=== PATIENT | female | born 1995 | race Caucasian/White ===

== ENCOUNTER 2022-08-08 16:07 | Outpatient (CLI) | payer OTHER, SELFPAY ==
[2022-08-08 14:47] VITALS: BP 129/80; PULSE 105; RESP 17; TEMP 36.6; O2SAT 99; BMI 33.6
--- NOTE | 2022-08-08 16:06 | W.ED.CHARTNO ---
ED Chart Note Chart Note Details Date: 08/08/22 Details: Patient registered to the emergency department. She is a 2 at approximately 31 weeks comes in with GI illness initially but then reports that she has been having some contractions which she did not initially report triage nurse. Patient to [facility] or further evaluation treatment per
[2022-08-08 16:17] VITALS: PULSE 105; O2SAT 100
[2022-08-08 16:20] VITALS: BP 120/81; PULSE 106; TEMP 36.8
--- NOTE | 2022-08-08 16:21 | ED.NURSE ---
pt was transferred to OB due to feelings of contractions
[2022-08-08] MEDS: LACTATED RINGERS 1000 ML 1,000 ML IV (16:54)
[2022-08-08] MEDS: ONDANSETRON 2 MG/ML inj 4 MG IVP (16:54)
[2022-08-08 17:57] LABS: SARS PCR* POSITIVE SARS-CoV-2 (Negative)
[2022-08-08] MEDS: LACTATED RINGERS 1000 ML IV (18:06)
--- NOTE | 2022-08-08 19:49 | P.OBLDTN_ITS ---
OB - Triage/Final Diagnosis Visit Information Time Seen by Provider: 19:49 Date Seen: 08/08/22 Date of evaluation: 08/08/22 Narrative: Betsey is a 27-year-old 3 para 2001 approximately 31 weeks gestation by last menstrual period consistent with a 1st trimester ultrasound. She was diverted from [address] by her OBGYN in [place] with complaints of nausea, vomiting and diarrhea starting Friday night on 08/04/2022. She has been only able to keep a few bites of food down and very little fluid. She has 2 boys at home who are age 3 and 2 years old and has not been able to care for them because she has been so dehydrated, fatigue and feeling unwell. She denies having a fever, cough, shortness of breath, chest pain, muscle aches loss of sense of smell or taste. She has not had any ill contacts. She works from [employer]. She states that she has had some ?Jose Rafael Negron? contractions this week due to diarrhea and dehydration. She states this does not feel like labor. She has not had any complications in this . She is otherwise healthy. She takes medication for significant GERD and what sounds like hiatal hernia and a baby aspirin daily due to history of gestational hypertension with both of her previous children induction of labor at 37 weeks. Because she reported some contractions the emergency department recommended that she be seen in the Center triage area for evaluation. Past medical history: 1. GERD with hiatal hernia 2. Obesity 3. History of gestational hypertension x2 Surgical history: None reported Obstetric history: 2 vaginal deliveries at 37 weeks gestation, both complicated by gestational hypertension with induction of labor. Boys. Currently expecting a 3rd boy. Social history: [id number] mom Denies: Smoking cigarettes, E cigarettes, illicit/recreational drugs, alcohol. Family history: Noncontributory OBJECTIVE: GENERAL APPEARANCE: Pleasant, , well-groomed woman in no acute distress. VITAL SIGNS: as noted in nursing notes LUNGS: Clear to auscultation bilaterally without wheezes, rales or rhonchi. HEART: Regular rate and rhythm with normal S1 and S2. No gallop, rub or murmur. ABDOMEN: Gravid. Soft, nontender, nondistended, with normal bowels sounds throughout. HEART TONES: 140s, reactive NST, category 1. Few irregular, contractions lasting less than 30 seconds increased frequency after IV hydration. PRESENTATION: Vertex by Prakash's maneuvers. SVE: Cervix exam not checked EXTREMITIES: No cyanosis, clubbing, or edema. No varicosities. NEUROLOGIC: Normal gait and balance. Normal deep tendon reflexes at bilateral patella 2+/2, equal without clonus. PSYCHIATRIC: alert and oriented x3. Normal speech pattern, eye contact and affect. SKIN: Warm, dry, and well perfused. Good turgor. No lesions, nodules or rashes. Assessment: Nausea, vomiting and diarrhea x4 days with dehydration. Unclear etiology at assessment. Plan: 1. COVID test 2. IV fluid hydration 2 L lactated Ringer's 3. Zofran 4 mg IV x1 Results: COVID positive Patient stated improvement in symptoms after IV fluid hydration but did not feel 100%. Due to I recommended Paxlovid for treatment of COVID. Her gastrointestinal symptoms are likely secondary to COVID. This medication decreases the chances severe disease by 90% if started in the 1st 5 days after symptoms begin. Is safe to use in . Is an antiviral. Serum creatinine ordered as Paxlovid can be because dosage adjusted in people with moderate renal impairment. Sent the below medications to [facility] in [place]: The dosage for Paxlovid is 300 mg nirmatralvir ( two 150mg tablets) with 100mg ritonavir (one 100mg tablet): Take all 3 tablets BID for 5 days. Ondasetron ODT 4mg PO QID prn N/V: #30 w/ 3 refills. Evaluation Laboratory results: Laboratory Tests 08/08/22 Range/Units 17:06 SARS-CoV-2 (PCR) POSITIVE SARS-CoV-2 A (Negative) Vital signs: Vital Signs - 24 hr 08/08/22 14:47 08/08/22 16:17 08/08/22 16:20 Temperature 97.9 F Pulse Rate 106 H Pulse Rate [Pulse Oximeter] 105 H Respiratory Rate 17 Blood Pressure 120/81 Blood Pressure [Right Upper Arm] 129/80 Pulse Oximetry 99 100 Oxygen Delivery Method Room Air 08/08/22 16:20 Temperature 98.3 F Pulse Rate Pulse Rate [Pulse Oximeter] Respiratory Rate Blood Pressure Blood Pressure [Right Upper Arm] Pulse Oximetry Oxygen Delivery Method Fetus (Single) Heart Rate Baseline: 140 Information Security Variability: Moderate (6-25) Monitor Accelerations: Present Monitor Decelerations: None Station: -3
--- NOTE | 2022-08-08 19:55 | PC.OBNST ---
NST Note NST Note Start: 08/08/22 16:20 Freq: ONCE Status: Active Protocol: Document 08/08/22 19:51 HALLIEDANIELABETHANY (Rec: 08/08/22 19:55 KYREEBETHANY [id number]) NST Note 3 Para (# of births) 2 EDC 10/12/22 Gestational Age In Weeks & Days 30 Weeks & 5 Days Patient Presented with Complaint(s) of Nausea and vomiting Other Complaints Pt found to be COVID + on admit to triage. Reactive Yes Appropriate for Gestational Age Yes RN Javid Covington RN Date 08/08/22 Reactive Yes Appropriate for Gestational Age Yes KEATON Sainz RN Date 08/08/22 OB NST charge Yes Complete NST Note via Write Note Yes The provider's electronic signature indicates the NST is reactive/appropriate for gestational age. *Note to provider: If an addendum is required, open the patient's chart and click on the note under the Nurse/Allied Health tab.
[2022-08-08 20:20] LABS: Creatinine* 0.5 mg/dL (0.5-1.5); Est. Creatinine Clearance* 170.49; Estimated Glomerular Filt Rate 132 ml/min
== END 2022-08-08 20:35 | disposition home or self-care (01) ==
LOC: OB OUT 16:11 → OB 16:12
PROVIDERS: Visit Provider Obstetrics & Gynecology
DX: O98.513 Other viral diseases complicating pregnancy, third trimester (principal); U07.1 COVID-19; R11.2 Nausea with vomiting, unspecified; Z3A.30 30 weeks gestation of pregnancy
CPT/HCPCS: 36415; 59025; 82565; 87635; 99213; J2405; J7120

== ENCOUNTER 2024-05-03 12:51 | Outpatient (CLI) | payer OTHER, SELFPAY ==
--- NOTE | 2024-05-03 13:00 | CRLHL7_ITS ---
For Patients: As a result of the Cures Act, medical imaging exams and procedure reports are released immediately into your electronic medical record. You may view this report before your referring provider. If you have questions, please contact your health care provider. INDICATION: First trimester scan, establish dates. COMPARISON: None. TECHNIQUE: Real-time moreno-scale imaging of the pelvis was performed. FINDINGS: Sonographic imaging demonstrates a single living intrauterine gestation. The embryo demonstrates a regular cardiac rate measuring 171 beats per minute. The embryo`s crown-rump length measurement of 2.1 cm corresponds to a gestational age of 8 weeks 5 days with a sonographic due date of 12/08/2024. There is a normal-appearing yolk sac. There are no gross abnormalities noted within the embryo at this early state of development. The gestational sac has a normal appearance. There is no evidence of a perigestational hemorrhage. The amount of fluid within the sac appears appropriate for gestational age. The cervix is closed. The myometrium appears normal. Normal right ovary. Left ovary not visualized. There are no suspicious fluid collections noted in the cul-de-sac. IMPRESSION: Single living intrauterine with sonographic gestational age 8 weeks 5 days and sonographic due date 12/08/2024. Dictated by Dav Ruiz MD @ 05/04/2024 11:37:11 AM (Electronically Signed)
== END 2024-05-03 12:52 | disposition home or self-care (01) ==
LOC: US 12:52
PROVIDERS: Visit Provider Advanced Practice Midwife
DX: Z34.91 Encounter for supervision of normal pregnancy, unspecified, first trimester (principal); Z3A.08 8 weeks gestation of pregnancy
CPT/HCPCS: 76817; 82565; 82570; 84156; 84450; 84460; 84520; 86592; 86703; 86704; 86706; 86762; 86787; 86803; 86850; 87086; 87340

== ENCOUNTER 2024-05-03 14:00 | Outpatient (CLI) | payer OTHER, SELFPAY | END 2024-05-03 14:01 | disposition home or self-care (01) | PROVIDERS: Visit Provider Advanced Practice Midwife | DX: Z34.81 Encounter for supervision of other normal pregnancy, first trimester (principal) | CPT/HCPCS: 82565; 82570; 84156; 84450; 84460; 84520; 86592; 86703; 86704; 86706; 86762; 86787; 86803; 86850; 87086; 87340 ==

== ENCOUNTER 2024-05-31 13:33 | Outpatient (CLI) | payer OTHER, SELFPAY | END 2024-05-31 13:34 | disposition home or self-care (01) | LOC: NFLDREF 13:34 | PROVIDERS: Visit Provider Advanced Practice Midwife | DX: Z34.91 Encounter for supervision of normal pregnancy, unspecified, first trimester (principal); Z3A.13 13 weeks gestation of pregnancy | CPT/HCPCS: 84460 ==

== ENCOUNTER 2024-07-26 10:13 | Outpatient (CLI) | payer OTHER, SELFPAY ==
--- NOTE | 2024-07-26 10:15 | CRLHL7_ITS ---
For Patients: As a result of the Century Cures Act, medical imaging exams and procedure reports are released immediately into your electronic medical record. You may view this report before your referring provider. If you have questions, please contact your health care provider. INDICATION: Evaluate anatomy. COMPARISON: 05/03/2024 TECHNIQUE: Real time moreno scale imaging of the fetus was performed as well as color Doppler analysis of the umbilical vessels. FINDINGS: Sonographic imaging demonstrates a single living intrauterine gestation. Fetus demonstrates a regular cardiac rate of 134 beats per minute. Fetus has a vertex position. The placenta lies posteriorly without evidence of placenta previa. Placental edge is 3.7 cm from the internal cervical os. Amniotic fluid volume appears normal. Single deepest vertical pocket: 3.9 cm. The cervix is closed and measures 3.2 cm in length. The composite ultrasound gestational age is calculated at 21 weeks 1 day with an estimated sonographic due date of 12/05/2024. The estimated weight is 422 grams which lies at the 68th %. The following biometric measurements were obtained: Biparietal diameter: 4.8 cm/20 weeks 3 days 28th% Head circumference: 18.4 cm/20 weeks 5 days 31st% Abdominal circumference: 16.5 cm/21 weeks 4 days 63rd% Femur length: 3.6 cm/21 weeks 3 days 58th% The HC/AC ratio measures: 1.11 range (1.06-1.25) On anatomic survey, there is a normal appearance of the cerebral ventricles, cavum septi pellucidi, cisterna magna and cerebellum. Normal nose and lips. Incomplete visualization of the profile and nuchal fold. The cervical, thoracic and lumbar spine are not well visualized. Normal four-chamber heart and RVOT. Incomplete visualization of the LVOT. The diaphragm and stomach appear normal. Incomplete visualization of the kidneys. Normal bladder. There is a normal three-vessel cord and cord insertion site. The four extremities appear normal. IMPRESSION: Concordance of clinical and sonographic dating. Incomplete visualization of the profile, kidneys, LVOT, nuchal fold and spine due to position. Remainder of the anatomic survey normal given limitations due to body habitus. Short-term follow-up recommended. Dictated by Dav Ruiz MD @ 07/26/2024 12:02:43 PM (Electronically Signed)
== END 2024-07-26 10:14 | disposition home or self-care (01) ==
LOC: US 10:15
PROVIDERS: Visit Provider Advanced Practice Midwife
DX: Z34.92 Encounter for supervision of normal pregnancy, unspecified, second trimester (principal); Z3A.21 21 weeks gestation of pregnancy
CPT/HCPCS: 76805

== ENCOUNTER 2024-08-09 13:55 | Outpatient (CLI) | payer OTHER, SELFPAY ==
--- NOTE | 2024-08-09 14:00 | CRLHL7_ITS ---
For Patients: As a result of the Century Cures Act, medical imaging exams and procedure reports are released immediately into your electronic medical record. You may view this report before your referring provider. If you have questions, please contact your health care provider. OB ULTRASOUND FOLLOWUP LIMITED, 08/09/2024 CLINICAL HISTORY: Followup suboptimal anatomy views; spine, kidneys, LVOT, nuchal fold, profile. COMPARISON: 07/26/2024. TECHNIQUE: Transabdominal. FINDINGS: RUTHY by LMP: 12/06/2024. GA: 23 weeks 0 days. Cervix: Visualized. positioning: Breech. Amniotic fluid: 5.7 cm. Placenta: Technique: Transabdominal. Placenta position: Posterior. Dopplers: heart rate: 139 bpm. IMPRESSION: Facial profile, kidneys, LVOT, nuchal fold and spine were seen and appear normal. Adrian Quigley M.D. Body/Diagnostic Radiologist [email or web address] Transcribed: 12:49 pm DW/Dictated by: Adrian Quigley MD @ 08/10/2024 11:58:00 AM (Electronically Signed)
== END 2024-08-09 13:56 | disposition home or self-care (01) ==
LOC: US 13:55
PROVIDERS: Visit Provider Midwife
DX: Z34.92 Encounter for supervision of normal pregnancy, unspecified, second trimester (principal); Z3A.23 23 weeks gestation of pregnancy
CPT/HCPCS: 76816

== ENCOUNTER 2024-09-20 10:35 | Outpatient (CLI) | payer OTHER, SELFPAY | END 2024-09-20 10:36 | disposition home or self-care (01) | LOC: NFLDREF 09-22 06:21 | PROVIDERS: Visit Provider Advanced Practice Midwife | DX: Z34.93 Encounter for supervision of normal pregnancy, unspecified, third trimester (principal); Z3A.29 29 weeks gestation of pregnancy; R74.01 Elevation of levels of liver transaminase levels | CPT/HCPCS: 84460; 86592 ==

== ENCOUNTER 2024-09-28 13:24 | Outpatient (CLI) | payer OTHER, SELFPAY | END 2024-09-28 13:25 | disposition home or self-care (01) | PROVIDERS: Visit Provider Midwife | DX: Z34.93 Encounter for supervision of normal pregnancy, unspecified, third trimester (principal); Z3A.30 30 weeks gestation of pregnancy | CPT/HCPCS: 82565; 82570; 84156; 84450; 84460; 84520; 84550; 85027 ==

== ENCOUNTER 2024-10-25 11:32 | Outpatient (CLI) | payer OTHER, SELFPAY | END 2024-10-25 11:33 | disposition home or self-care (01) | LOC: NFLDREF 23:54 | PROVIDERS: Visit Provider Physician Assistant | DX: Z34.83 Encounter for supervision of other normal pregnancy, third trimester (principal) | CPT/HCPCS: 82728 ==

== ENCOUNTER 2024-10-28 15:10 | Outpatient (CLI) | payer OTHER, SELFPAY ==
[2024-10-28] VITALS (82 sets, daily range): BP systolic 114–144; BP diastolic 59–86; PULSE 106–136; RESP 16; TEMP 36.5; O2SAT 96–99
[2024-10-28] MEDS: ACETAMINOPHEN 500 MG TABLET 1000 MG PO (16:48)
[2024-10-28 17:07] LABS: Alanine Aminotransferase* 33 U/L (4-35); Aspartate Amino Transferase* 32 U/L (12-35); Blood Urea Nitrogen* 7 mg/dL (5-24); Creatinine* 0.5 mg/dL (0.5-1.5); Estimated Glomerular Filt Rate 130 ml/min
[2024-10-28 17:13] LABS: Hematocrit 34.5 % (33.0-51.0); Hemoglobin* 11.2 gm/dL (12.0-16.0); Mean Corpuscular HGB Conc 33 gm/dL (32-36); Mean Corpuscular Hemoglobin 26 pg (26-34); Mean Corpuscular Volume 80 fL (80-100); Platelet Count* 199 K/uL (140-440); Red Blood Count 4.31 m/uL (4.00-5.20); White Blood Count* 10.75 K/uL (4.50-11.00)
[2024-10-28 17:37] LABS: Slide Review Reflex No
[2024-10-28] MEDS: METOCLOPRAMIDE 10 MG TABLET PO (20:48)
--- NOTE | 2024-10-28 21:09 | P.OBLDTN_ITS ---
OB - Triage/Final Diagnosis Visit Information Date Seen: 10/28/24 Date of evaluation: 10/28/24 Narrative: Betsey is a 29 year old 4 para 3 at 34.3 weeks gestation by LMP, who presents with elevated blood pressures with a history of gestational hypertensio n in previous pregnancies. She had been monitoring blood pressures at home and has had some elevations over the last day which were >140/90. She was seen in the clinic for a blood pressure check and had an elevated blood pressure of 148/88. She elected to come to L&D for additional blood pressure monitoring and has now met criteria for gestational hypertension this . Reviewed recommendations for testing twice weekly and weekly lab work with planned induction of labor at 37 weeks. She has a BP cuff at home and will continue to monitor twice daily. Knows to report increasing BP's, headaches, upper abdominal pain or visual changes. She was comfortable with this plan and verbalized understanding of what to report. Patient was discharged home. Reason for evaluation: other Evaluation Laboratory results: Laboratory Tests 10/28/24 10/28/24 Range/Units 16:38 15:20 WBC 10.75 (4.50-11.00) K/uL RBC 4.31 (4.00-5.20) m/uL Hgb 11.2 L (12.0-16.0) gm/dL Hct 34.5 (33.0-51.0) % MCV 80 (80-100) fL MCH 26 (26-34) pg MCHC 33 (32-36) gm/dL Plt Count 199 (140-440) K/uL BUN 7 (5-24) mg/dL Creatinine 0.5 (0.5-1.5) mg/dL Estimated GFR 130 ml/min AST 32 (12-35) U/L ALT 33 (4-35) U/L Urine Creatinine Pending Protein/Creatinin Ratio Pending Urine Total Protein Pending Vital signs: Vital Signs - 24 hr 10/28/24 15:26 10/28/24 15:26 10/28/24 15:31 Temperature 97.7 F Pulse Rate 134 H Respiratory Rate 16 Blood Pressure 128/79 Pulse Oximetry 98 98 10/28/24 15:36 10/28/24 15:40 10/28/24 15:41 Temperature Pulse Rate 127 H Respiratory Rate Blood Pressure 132/81 Pulse Oximetry 98 98 10/28/24 15:46 10/28/24 15:51 10/28/24 15:55 Temperature Pulse Rate 122 H Respiratory Rate Blood Pressure 131/76 Pulse Oximetry 99 98 10/28/24 15:56 10/28/24 16:01 10/28/24 16:06 Temperature Pulse Rate Respiratory Rate Blood Pressure Pulse Oximetry 98 97 97 10/28/24 16:10 10/28/24 16:11 10/28/24 16:16 Temperature Pulse Rate 130 H Respiratory Rate Blood Pressure 129/73 Pulse Oximetry 98 98 10/28/24 16:21 10/28/24 16:25 10/28/24 16:26 Temperature Pulse Rate 127 H Respiratory Rate Blood Pressure 140/79 H Pulse Oximetry 98 99 10/28/24 16:31 10/28/24 16:36 10/28/24 16:41 Temperature Pulse Rate Respiratory Rate Blood Pressure Pulse Oximetry 98 99 99 10/28/24 16:42 10/28/24 16:46 10/28/24 16:51 Temperature Pulse Rate 110 H Respiratory Rate Blood Pressure 115/67 Pulse Oximetry 98 98 10/28/24 16:55 10/28/24 16:56 10/28/24 17:02 Temperature Pulse Rate 117 H Respiratory Rate Blood Pressure 114/63 Pulse Oximetry 98 96 10/28/24 17:07 10/28/24 17:11 10/28/24 17:12 Temperature Pulse Rate 127 H Respiratory Rate Blood Pressure 130/80 Pulse Oximetry 98 98 10/28/24 17:17 10/28/24 17:22 10/28/24 17:25 Temperature Pulse Rate 125 H Respiratory Rate Blood Pressure 125/69 Pulse Oximetry 97 97 10/28/24 17:27 10/28/24 17:32 10/28/24 17:37 Temperature Pulse Rate Respiratory Rate Blood Pressure Pulse Oximetry 96 96 97 10/28/24 17:40 10/28/24 17:42 10/28/24 17:47 Temperature Pulse Rate 122 H Respiratory Rate Blood Pressure 116/73 Pulse Oximetry 98 97 10/28/24 17:52 10/28/24 17:55 10/28/24 17:57 Temperature Pulse Rate 125 H Respiratory Rate Blood Pressure 130/80 Pulse Oximetry 98 97 10/28/24 18:02 10/28/24 18:07 10/28/24 18:10 Temperature Pulse Rate 125 H Respiratory Rate Blood Pressure 132/83 Pulse Oximetry 98 99 10/28/24 18:12 10/28/24 18:17 10/28/24 18:22 Temperature Pulse Rate Respiratory Rate Blood Pressure Pulse Oximetry 97 97 99 10/28/24 18:25 10/28/24 18:27 10/28/24 18:32 Temperature Pulse Rate 125 H Respiratory Rate Blood Pressure 138/83 Pulse Oximetry 98 99 10/28/24 18:37 10/28/24 18:40 10/28/24 18:42 Temperature Pulse Rate 121 H Respiratory Rate Blood Pressure 139/86 Pulse Oximetry 98 97 10/28/24 18:47 10/28/24 18:52 10/28/24 18:55 Temperature Pulse Rate 136 H Respiratory Rate Blood Pressure 144/82 H Pulse Oximetry 99 99 10/28/24 18:57 10/28/24 19:02 10/28/24 19:07 Temperature Pulse Rate Respiratory Rate Blood Pressure Pulse Oximetry 98 98 98 10/28/24 19:10 10/28/24 19:12 10/28/24 19:17 Temperature Pulse Rate 113 H Respiratory Rate Blood Pressure 135/77 Pulse Oximetry 99 98 10/28/24 19:22 10/28/24 19:25 10/28/24 19:27 Temperature Pulse Rate Respiratory Rate Blood Pressure 139/76 Pulse Oximetry 98 98 10/28/24 19:32 10/28/24 19:37 10/28/24 19:40 Temperature Pulse Rate 126 H Respiratory Rate Blood Pressure 123/60 Pulse Oximetry 97 97 10/28/24 19:42 10/28/24 19:47 10/28/24 19:52 Temperature Pulse Rate Respiratory Rate Blood Pressure Pulse Oximetry 97 97 97 10/28/24 19:55 10/28/24 19:57 10/28/24 20:02 Temperature Pulse Rate 125 H Respiratory Rate Blood Pressure 123/63 Pulse Oximetry 97 97 10/28/24 20:07 10/28/24 20:10 10/28/24 20:12 Temperature Pulse Rate 121 H Respiratory Rate Blood Pressure 124/59 L Pulse Oximetry 98 98 10/28/24 20:17 10/28/24 20:22 10/28/24 20:25 Temperature Pulse Rate 118 H Respiratory Rate Blood Pressure 135/61 Pulse Oximetry 98 98 10/28/24 20:27 10/28/24 20:32 Temperature Pulse Rate Respiratory Rate Blood Pressure Pulse Oximetry 97 99 Fetus (Single) Heart Rate Baseline: 150 Assisted Variability: Moderate (6-25) Monitor Accelerations: Present Monitor Decelerations: None Final Diagnosis (1) Gestational hypertension: Status: Acute
[2024-10-29 11:05] LABS: Total Protein Urine 16 mg/dL
[2024-10-29 11:06] LABS: Creatinine Urine 128.8 mg/dL; Protein Creatinine Ratio Urine 0.12 (0-0.19)
--- NOTE | 2024-11-10 15:03 | PC.OBNST ---
NST Note NST Note Start: 10/28/24 15:17 Freq: ONCE Status: Discharge Protocol: Document 10/28/24 21:00 JEAN PAULMishel (Rec: 11/10/24 15:02 KYREEBETHANY [id number]) NST Note 4 Para (# of births) 3 EDC 12/06/24 Gestational Age In Weeks & Days 36 Weeks & 2 Days High Risk Factors High Blood Pressure - Gestational Patient Presented with Complaint(s) of Other Other Complaints Patient was 34.3 weeks at time of triage. Observed for elevated BP's. Maurice SHORE at bedside to assess patient prior to discharge Reactive Yes Appropriate for Gestational Age Yes RN Javid Covington RN Date 10/28/24 Reactive Yes Appropriate for Gestational Age Yes RN Loyd Castellanos RN Date 10/28/24 OB NST charge Yes Complete NST Note via Write Note Yes The provider's electronic signature indicates the NST is reactive/appropriate for gestational age. *Note to provider: If an addendum is required, open the patient's chart and click on the note under the Nurse/Allied Health tab.
== END 2024-10-28 20:51 | disposition home or self-care (01) ==
LOC: OB OUT 15:13 → OB 15:18
PROVIDERS: Visit Provider Advanced Practice Midwife
DX: O13.3 Gestational [pregnancy-induced] hypertension without significant proteinuria, third trimester (principal); Z3A.35 35 weeks gestation of pregnancy
CPT/HCPCS: 36415; 59025; 82565; 82570; 84156; 84450; 84460; 84520; 85027; G0463; A9270

== ENCOUNTER 2024-11-01 13:50 | Outpatient (CLI) | payer OTHER, SELFPAY ==
--- NOTE | 2024-11-01 14:00 | CRLHL7_ITS ---
For Patients: As a result of the Century Cures Act, medical imaging exams and procedure reports are released immediately into your electronic medical record. You may view this report before your referring provider. If you have questions, please contact your health care provider. OBSTETRICAL ULTRASOUND ??? BIOPHYSICAL PROFILE, 11/01/2024 INDICATION: Gestational diabetes mellitus. Biophysical profile and growth. CLINICAL HISTORY: RUTHY by LMP: 12/06/2024 Gestational Age: 30 weeks 0 days COMPARISON: 08/09/2024, 07/26/2024, 05/03/2024 TECHNIQUE: Real-time moreno-scale imaging of the fetus was performed transabdominal FINDINGS: Fetus: Single Cervix: Not visualized positioning: Breech Amniotic fluid: 3.6 cm SDP BIOPHYSICAL PROFILE: Gross body movements: 2 tone: 2 Respiratory activity: 2 Amniotic fluid SDP: 2 Total score: 8 Placenta technique: Transabdominal Placenta position: Posterior heart rate: 133 bpm BIOMETRY: BPD: 8.7 cm, 35 weeks 2 days, 59.9% HC: 34.2 cm, 39 weeks 3 days, greater than 97% AC: 34.6 cm, 38 weeks 4 days, greater than 97% FL: 7.1 cm, 36 weeks 3 days, 78.8% FL/AC Ratio: 20.53% HC/AC ratio: 0.99 EFW: 3299 grams; 7 lbs. 4 oz. age by this ultrasound: 37 weeks 3 days RUTHY by this ultrasound: 11/19/2024 Percentile by RUTHY: Greater than 97% IMPRESSION: 1. Normal biophysical profile score of 8/8. 2. Sonographic gestational age is 37 weeks 3 days. Sonographic due date is 11/19/2024. Sonographic age is 17 days ahead of the clinical age. 3. Estimated weight is greater than 97th percentile. Abdominal circumference and head circumference are greater than 97th percentile. DAV KEY M.D. Diagnostic Radiologist [email or web address] Transcribed: 3:[address]/Dictated by: Dav Key MD @ 11/01/2024 3:22:00 PM (Electronically Signed)
== END 2024-11-01 13:51 | disposition home or self-care (01) ==
LOC: US 13:51
PROVIDERS: Visit Provider Advanced Practice Midwife
DX: O24.419 Gestational diabetes mellitus in pregnancy, unspecified control (principal); O36.63X0 Maternal care for excessive fetal growth, third trimester, not applicable or unspecified; Z3A.35 35 weeks gestation of pregnancy
CPT/HCPCS: 76816; 76819

== ENCOUNTER 2024-11-04 09:45 | Outpatient (CLI) | payer OTHER, SELFPAY | END 2024-11-04 09:46 | disposition home or self-care (01) | LOC: NFLDREF 11-08 19:39 | PROVIDERS: Visit Provider Advanced Practice Midwife | DX: O13.3 Gestational [pregnancy-induced] hypertension without significant proteinuria, third trimester (principal); Z3A.35 35 weeks gestation of pregnancy | CPT/HCPCS: 82565; 82570; 84156; 84450; 84460 ==

== ENCOUNTER 2024-11-08 10:07 | Outpatient (CLI) | payer OTHER, SELFPAY ==
--- NOTE | 2024-11-08 10:15 | CRLHL7_ITS ---
For Patients: As a result of the Century Cures Act, medical imaging exams and procedure reports are released immediately into your electronic medical record. You may view this report before your referring provider. If you have questions, please contact your health care provider. ULTRASOUND OB PELVIS BIOPHYSICAL PROFILE TECHNIQUE: Real time moreno scale imaging of the fetus was performed transabdominal. RUTHY by LMP: 12/06/2024. GA: 36w, 0d. Single. COMPARISON: 11/01/2024, 08/09/2024, 07/26/2024. INDICATION: CHTN. CERVIX: Not visualized. POSITIONING: Breech. AMNIOTIC FLUID: 6.6 cm SDP. BIOPHYSICAL PROFILE: Total score: 2. Gross body movements: 2. tone: 2. Respiratory activity: 2. Amniotic fluid: 8. (SDP N: Increase 2 x 1 cm) PLACENTA: Technique: Transabdominal. PLACENTA POSITION: Posterior. DOPPLER: heart rate: 155 bpm. IMPRESSION: Normal biophysical profile 03/04. Dav Ruiz M.D. Diagnostic Radiologist [email or web address] SP/Dictated by: Dav Ruiz MD @ 11/08/2024 5:10:00 PM (Electronically Signed)
== END 2024-11-08 10:08 | disposition home or self-care (01) ==
LOC: US 10:07
PROVIDERS: Visit Provider Advanced Practice Midwife
DX: O13.3 Gestational [pregnancy-induced] hypertension without significant proteinuria, third trimester (principal); Z3A.36 36 weeks gestation of pregnancy; O09.93 Supervision of high risk pregnancy, unspecified, third trimester
CPT/HCPCS: 76819

== ENCOUNTER 2024-11-08 15:04 | Outpatient (CLI) | payer OTHER, SELFPAY ==
[2024-11-09 22:47] LABS: Strep B DNA Probe Negative (Negative)
[2024-11-09 23:36] LABS: Strep B Susceptibility Needed? No
== END 2024-11-08 15:05 | disposition home or self-care (01) ==
LOC: NFLDREF 15:04
PROVIDERS: Visit Provider Midwife
DX: O09.93 Supervision of high risk pregnancy, unspecified, third trimester (principal); Z3A.36 36 weeks gestation of pregnancy
CPT/HCPCS: 87081; 87653

== ENCOUNTER 2024-11-11 09:38 | Outpatient (CLI) | payer OTHER, SELFPAY | END 2024-11-11 09:39 | disposition home or self-care (01) | LOC: NFLDREF 11-17 01:56 | PROVIDERS: Visit Provider Advanced Practice Midwife | DX: O13.3 Gestational [pregnancy-induced] hypertension without significant proteinuria, third trimester (principal); Z3A.36 36 weeks gestation of pregnancy | CPT/HCPCS: 82565; 82570; 84156; 84450; 84460; 84520 ==

== ENCOUNTER 2024-11-15 08:47 | Inpatient (IN) | payer OTHER, SELFPAY ==
[2024-11-15] VITALS (62 sets, daily range): BP systolic 98–155; BP diastolic 56–94; PULSE 96–130; RESP 18; TEMP 36.5–36.9; O2SAT 96–99; BMI 38.7
--- NOTE | 2024-11-15 09:40 | P.LDBA_ITS ---
Subjective History of Present Illness Narrative: Patient is being admitted to Labor and Delivery for external version and delivery, either by or induction of labor for vaginal for GHTN. She is a 29 year old at 37 0/7 weeks gestation. Her full history and physical was dictated by me 11/08/2024. Please see this for details. Baby has been persistently breech so Betsey arrives for a version attempt and either IOL vs depending on outcome. She has not had FOY, vision changes o r RUQ pain. BPs have been normal or mildly elevated with repeats normal. Labs last done 4 days ago were normal essentially, but hgb noted to be 10.9. No proteinuria yet noted. 11/01/2024 US revealed : Normal biophysical profile score of 8/8. 2.Sonographic gestational age is 37 weeks 3 days. Sonographic due date is 11/19/2024. Sonographic age is 17 days ahead of the clinical age. 3.Estimated weight is greater than 97th percentile. Abdominal circumference and head circumference are greater than 97th percentile. Pt states her previous baby's heads were large and they were all very good size since all were 37 weeks gestation. ECV successfull today with Dr Cesar attending. Please see her note. Specific Issues/Plans Is charged for every lab draw separate would like to avoid extra labs. Blood type in records O+, not done at [facility]. Partner: Srikanth; 3 boys at home. This is a girl!!! H&P:? completed 11/08/2024 by Sandip SHORE # Gestational hypertension Dx 10/28/24 labs WNL, pc ratio 0.12 Hx Gestational Hypertension ? Baseline PreE labs at [facility]. ALT 105 on 05/03 and 76 on 05/31? 24 hr urine declined Taking baby ASA 09/27/24 2 mild elevations at home, return to normal after 30 min, normal in clinic. Labs redrawn. Plan: Continue to monitor at home. If BP hits 150/100 OR if BP >140/90 persists > 30 min, any FOY/vision changes, RUQ pain or anything else new, then will call us. Will recheck labs today. She agrees with plan and has no further questions. No HTN diagnosis yet. Initiate surveillance with diagnosis as indicated. Weekly pre-e labs with urine p/c ratio starting at 32 weeks.?ordered for 4/10/25 Twice weekly testing starting at time of diagnosis Growth US every 3 weeks beginning at time of diagnosis?ordered for 11/01/24 Delivery recommended at 37 0/7 weeks: On books for 11/15, IOL form signed and consent sent to scanning # Breech presentation at 35 weeks, 36w-still breech #? Hx adverse rxn to epidural ?placement issue? was numb from her mouth down, consider anesthesia consult # elevated ALT at [facility]. -105; RESOLVED redrawn at 13 wks-76 Consider redraw with 28 week labs-ordered: WNL, 29 # anemia. Hemoglobin 10.7 at 34 weeks Iron supplementation every other day # Varicella non-immune recommend vaccine PP Imaging:??? 1st tri US 05/03/24: Single living intrauterine with sonographic gestational age 8 weeks 5 days and sonographic due date 12/08/2024. Anatomy US 07/26/2024: Normal findings, but suboptimal views of profile, kidneys, and LVOT due to position. Spine and nuchal fold also not measured on tech report. Posterior placenta. Follow up ordered 07/26/24. [place]-IG-Ecbqmz profile, kidneys, LVOT, nuchal fold and spine were seen and appear normal. 08/09/2024 ? Vaccinations:?? COVID: 05/31/2024 Flu: 05/31/2024 Tdap: 09/28/24? RSV: N/A 32 week mental health: 10/11 Last pap:? 12/25/2021 NILM? OB - Problem Based A/P Additional Plan (1) Supervision of high risk in third trimester: Status: Acute (2) Gestational hypertension: Status: Acute (3) Breech presentation, antepartum: Problem details: at 35 weeks Status: Acute Plan ASSESSMENT:?? 29 at 37 0/7 weeks gestation?? complicated by:??GHTN, LGA, anemia, breech presentation, elevated ALT (resolved) Labor type: Induction of labor??s/p successful external version with now vertex position Category 1 FHR pattern.??? Labor complicated by: GHTN?? GBS negative ?? PLAN:?? 1. Routine intrapartum cares as ordered. Initiate ripening agent protocol. Misoprostol PV started at 1012. General diet. 2. Monitoring per policy, continuous 3. Planning unmedicated . Does not desire water . Candidate for analgesia of choice.??? 4. Patient encouraged to reposition and ambulate to promote physiologic labor a nd .?? 5. Preelabs ordered.? 6. Anticipate ? OB Exam Physical Exam Vital signs: Temp Pulse BP Pulse Ox 97.7 F 118 H 121/79 98 11/15/24 09:02 11/15/24 09:02 11/15/24 09:02 11/15/24 09:02 Narrative: Vitals Reviewed Constitutional:? Alert and oriented x3 HEENT:? Normocephalic, atraumatic Neck:? Supple Lungs:? Clear to auscultation bilaterally Heart:? Regular rate and rhythm, no murmur, rub or gallop Abdomen:? Soft, nontender, and gravid. Vertex by Prakash's post procedure Extremities:? No edema or erythema. Reflexes +3/4 bilaterally with one beat of clonus Cervix: 1 cm/40%/ballotable station/vertex verified by US NST: 140 bpm/moderate variability/present accelerations/decelerations absent/contractions absent
[2024-11-15 09:45] LABS: Basophils Absolute Auto 0.04 K/uL (0.00-0.30); Basophils Percent Auto 0.4 % (0.0-3.0); Eosinophils Absolute Auto 0.11 K/uL (0.00-0.50); Hemoglobin* 11.3 gm/dL (12.0-16.0); Immature Granulocytes Abs Auto 0.47 K/uL (0.00-0.30); Immature Granulocytes Pct Auto 4.5 %; Lymphocytes Percent Auto 15.3 % (20-44); Mean Corpuscular HGB Conc 32 gm/dL (32-36); Mean Corpuscular Hemoglobin 25 pg (26-34); Mean Corpuscular Volume 77 fL (80-100); Monocytes Percent Auto 7.8 % (0.0-11.0); Neutrophils Absolute Auto 7.49 K/uL (1.7-7.0); Platelet Count* 207 K/uL (140-440); RDW Coefficient of Variation % 14.9 % (11.5-15.5); Red Blood Count 4.52 m/uL (4.00-5.20); White Blood Count* 10.54 K/uL (4.50-11.00)
[2024-11-15 09:50] LABS: Slide Review Reflex No
[2024-11-15] MEDS: TERBUTALINE 1 MG/ML INJ 0.25 MG SUBCUT (09:54)
[2024-11-15] MEDS: miSOPROStoL 25 MCG/0.25 TABLET VAGINAL ×2 (10:12→13:14)
[2024-11-15 10:39] LABS: Blood Urea Nitrogen* 8 mg/dL (5-24); Creatinine* 0.6 mg/dL (0.5-1.5); Estimated Glomerular Filt Rate 125 ml/min
[2024-11-15 10:40] LABS: Alanine Aminotransferase* 21 U/L (4-35); Aspartate Amino Transferase* 27 U/L (12-35)
[2024-11-15 13:00] LABS: Total Protein Urine 7 mg/dL
[2024-11-15 13:01] LABS: Protein Creatinine Ratio Urine 0.03 (0-0.19)
--- NOTE | 2024-11-15 13:10 | P.OBPN_ITS ---
Subjective Date Seen: 11/15/24 Narrative: Betsey is a 29yo here for IOL for GHTN after successful version this morning. She is doing well and has received one dose of misoprostol this morning. Her is supporting her. She is not yet feeling uncomfortable. Is drinking good PO. No LOF or vaginal bleeding. Good FM. Objective Exam: Objective: Constitutional: Alert and oriented x3, no distress, coping well, not yet feeling contractions Vital signs stable, see nurse documentation Abdomen: gravid, contractions palpate mild with contractions and soft between, EFW 7.75# Cervix: 3 cm/50%/-3 station/vertex with palpable sutures, soft, midposition NST: 140 bpm/moderate variability/accelerations present/decelerations absent/contractions irregular Vital Signs: Last Vital Signs Temp 98.1 F 11/15/24 11:00 Pulse 110 H 11/15/24 12:53 BP 129/79 11/15/24 12:53 Pulse Ox 98 11/15/24 10:02 Plan Plan: ASSESSMENT:?? [place] [address] Labor and Delivery Admit Note Patient: Betsey Covarrubias MR#: [id number] : 1995 Acct:[id number] Loc: [id number] Provider: Halle Becker cc: Provider,Not a Local; Halle Becker CNM~ Subjective History of Present Illness Narrative: Patient is being admitted to Labor and Delivery for external version and delivery, either by or induction of labor for vaginal for GHTN. She is a 29 year old at 37 0/7 weeks gestation. Her full history and physical was dictated by me 11/08/2024. Please see this for details. Baby has been persistently breech so Betsey arrives for a version attempt and either IOL vs depending on outcome. She has not had FOY, vision changes or RUQ pain. BPs have been normal or mildly elevated with repeats normal. Labs last done 4 days ago were normal essentially, but hgb noted to be 10.9. No proteinuria yet noted. 11/01/2024 US revealed : Normal biophysical profile score of 8/8. 2.Sonographic gestational age is 37 weeks 3 days. Sonographic due date is 11/19/2024. Sonographic age is 17 days ahead of the clinical age. 3.Estimated weight is greater than 97th percentile. Abdominal circumference and head circumference are greater than 97th percentile. Pt states her previous baby's heads were large and they were all very good size since all were 37 weeks gestation. ECV successfull today with Dr Cesar attending. Please see her note. Specific Issues/Plans Is charged for every lab draw separate would like to avoid extra labs. Blood type in records O+, not done at [facility]. Partner: Srikanth; 3 boys at home. This is a girl!!! H&P:? completed 11/08/2024 by Sandip SHORE # Gestational hypertension Dx 10/28/24 labs WNL, pc ratio 0.12 Hx Gestational Hypertension? Baseline PreE labs at [facility]. ALT 105 on 05/03 and 76 on 05/31? 24 hr urine declined Taking baby ASA 09/27/24 2 mild elevations at home, return to normal after 30 min, normal in clinic. Labs redrawn. Plan: Continue to monitor at home. If BP hits 150/100 OR if BP >140/90 persists > 30 min, any FOY/vision changes, RUQ pain or anything else new, then will call us. Will recheck labs today. She agrees with plan and has no further questions. No HTN diagnosis yet. Initiate surveillance with diagnosis as indicated. Weekly pre-e labs with urine p/c ratio starting at 32 weeks.?ordered for 11/04/24 Twice weekly testing starting at time of diagnosis Growth US every 3 weeks beginning at time of diagnosis?ordered for 11/01/24 Delivery recommended at 37 0/7 weeks: On books for 11/15, IOL form signed and consent sent to scanning # Breech presentation at 35 weeks, 36w-still breech #? Hx adverse rxn to epidural ?placement issue? was numb from her mouth down, consider anesthesia consult # elevated ALT at [facility]. -105; RESOLVED redrawn at 13 wks-76 Consider redraw with 28 week labs-ordered: WNL, 29 # anemia. Hemoglobin 10.7 at 34 weeks Iron supplementation every other day # Varicella non-immune recommend vaccine PP Imaging:??? 1st tri US 05/03/24: Single living intrauterine with sonographic gestational age 8 weeks 5 days and sonographic due date 12/08/2024. Anatomy US 07/26/2024: Normal findings, but suboptimal views of profile, kidneys, and LVOT due to position. Spine and nuchal fold also not measured on tech report. Posterior placenta. Follow up ordered 07/26/24. Jfnbdw-[id number]-[id number] profile, kidneys, LVOT, nuchal fold and spine were seen and appear normal. 08/09/2024 ? Vaccinations:?? COVID: 05/31/2024 Flu: 05/31/2024 Tdap: 09/28/24? RSV: N/A 32 week mental health: 10/11 Last pap:? 12/25/2021 NILM? OB - Problem Based A/P Additional Plan (1) Supervision of high risk in third trimester: Status: Acute (2) Gestational hypertension: Status: Acute (3) Breech presentation, antepartum: Problem details: at 35 weeks Status: Acute Plan ASSESSMENT:?? 29 at 37 0/7 weeks gestation?? complicated by:??GHTN, LGA, anemia, breech presentation (resolved), elevated ALT (resolved) Labor type: Induction of labor??s/p successful external version with now vertex position Category 1 FHR pattern.??? Labor complicated by: GHTN?? GBS negative PLAN:?? 1. Routine intrapartum cares as ordered. Continue with ripening for this dose. ROM when safe to do so. Pit prn 2. Monitoring per policy, continuous 3. Planning unmedicated . Candidate for analgesia of choice.??? 4. Patient encouraged to reposition and ambulate to promote physiologic labor and .?? 5. Anticipate ?
[2024-11-15] MEDS: ACETAMINOPHEN 500 MG TABLET 1000 MG PO (14:40)
[2024-11-15] MEDS: LACTATED RINGERS 1000 ML 1,000 ML 900 ML IV (15:57)
--- NOTE | 2024-11-15 16:54 | PM.OBPNL ---
Subjective Date Seen: 11/15/24 Narrative: Betsey is coping well with labor and only mildly uncomfortable. is supporting her at bedside. She is eating and drinking. Objective Exam: Objective: Constitutional: Alert and oriented x3, mild distress, coping well Vital signs stable, see nurse documentation Abdomen: gravid, contractions palpate mild with contractions and soft between Cervix: 4/60/-3 before arom, BBOW. 5/70/-2 after arom clear fluid, copious amount NST: 130 bpm/moderate variability/accelerations present/decelerations absent/contractions q 2-3 mild Vital Signs: Last Vital Signs Temp 98.1 F 11/15/24 15:00 Pulse 105 H 11/15/24 16:53 BP 126/82 11/15/24 16:53 Pulse Ox 98 11/15/24 10:02 Plan Plan: 29 at 37 0/7 weeks gestation?? complicated by:??GHTN, LGA, anemia, breech presentation (resolved), elevated ALT (resolved) Labor type: Induction of labor??s/p successful external version with now vertex position Category 1 FHR pattern.??? Labor complicated by: GHTN?? GBS negative PLAN:?? 1. Routine intrapartum cares as ordered. ROM-clear. Await an hour prior to starting pit to see if her body keeps going on her own first. 2. Monitoring per policy, continuous 3. Planning unmedicated . Candidate for analgesia of choice.??? 4. Patient encouraged to reposition and ambulate to promote physiologic labor and .?? 5. Anticipate ?
--- NOTE | 2024-11-15 17:54 | PM.OBCN1 ---
OB - CN: HPI Date of Consult Date Seen: 11/15/24 Patient: [facility] Patient (CNM patient) Consult date: 11/15/24 Requesting Physician: Halle Becker CNM Primary Care Provider: Not a Local Provider Consult Narrative Narrative: The patient is a 29 year old G 4 P 3 woman at 37 weeks gestation that was admitted to the Center on 11/15/24 for delivery for indication of gestational HTN. She has a history of same in previous pregnancies. Her fetus is currently in breech presentation. She would like an external cephalic version, and the plan would be induction of labor thereafter should this be successful, and if not. History History 4 Elective abortions Para 3 Spontaneous abortions Hx # Term Pregnancies 3 Ectopic pregnancies Hx # Pregnancies Multiple births Number of Living Children 3 Past Pregnancies Del. Date GA/Weeks Outcome Route wt Inf Gender Labor Lgth Anesthesia Location Provider Compli 12/18/18 37 live - full term vaginal delivery 7 lb 5 oz Male epidural [place] gestational hypertension 08/07/20 37 live - full term 6 lb 8 oz Male epidural [place] gestational hypertension 09/25/22 37 live - full term 7 lb 12 oz Male none [place] gestational hypertension Labs GBS status: negative OB Labs: Lab Assessment Start: 11/15/24 09:16 Freq: ONCE Status: Complete Protocol: PC.OBGBS Activity Type Activity Date Activity User E-sign Co-sign Detail Recorded Client Recorded Date Recorded By Document 11/15/24 09:18 [facility] [id number] 11/15/24 09:19 [facility] 11/15/24 09:18 Lab Assessment GBS Status negative GBS Additional Criteria None No Treatment Needed OK Are Labs Available Yes Maternal Blood Type O Maternal RH Factor Positive Evaluate Maternal Rubella Immune Status Immune Hepatitis B Surface Antigen Negative Maternal HIV Status Negative Maternal Syphillis (RPR) Status Negative [facility] Medical History (Updated 11/08/24 @ 11:21 by Halle Becker CNM) Gestational hypertension ?O13.9 - Gestational [-induced] hypertension without significant proteinuria, unspecified trimester (ICD-10) Adverse reaction to anesthetic agent ?T41.45XA - Adverse effect of unspecified anesthetic, initial encounter (ICD-10) Migraine ?G43.909 - Migraine, unspecified, not intractable, without status migrainosus (ICD-10) Vaginal delivery ?O80 - Encounter for full-term uncomplicated delivery (ICD-10) Vitamin D deficiency ?E55.9 - Vitamin D deficiency, unspecified (ICD-10) History of gestational hypertension ?Z87.59 - Personal history of other complications of , childbirth and the puerperium (ICD-10) Surgical History (Updated 11/08/24 @ 11:21 by Halle Becker CNM) [place] teeth extracted ?K08.409 - Partial loss of teeth, unspecified cause, unspecified class (ICD-10) Family History Mother Migraine Father High blood pressure Hodgkins lymphoma Lymphoma Sister Asthma Depression Prediabetes Anxiety Maternal Grandmother Alcohol dependence Maternal Grandfather Parkinson disease Paternal Grandfather Diabetes High blood pressure Leukemia Cardiovascular disease Parkinson disease Skin cancer Social History Narrative: SOCIAL? ? Education: bachelors? ? Work: works from home, [employer]? ? Partner: Srikanth? work?- Viviana Lives with: Srikanth and 3 kids, age 5, 3, 1 ? ? Pets: 2 cats one dog someone else changes litter? ? Abuse: Denies past Safe at home with current partner ? ? ? Special Diet: Denies? ? Ok with a blood transfusion: yes? ? Culture or latter day beliefs: denies? RISK FACTORS? ? Exercise Times/wk: Home workouts with bodyweight and low weights, and Walks 5 days a week? ? Depression/Anxiety: Anxiety?worse after 2nd baby ? Previous Treatments denies ? Therapy yes in past FABRIZIO: 2 PHQ 9: 1? ? Seat Belt Use: Routinely ? Smoking: Denies past/present? ? Alcohol/day: Denies while ? ?one time a month when not Caffeine: soda 1-2 day? ? Drug Use: Denies past/present What is your current living situation?: I presently have a place to live Problems where you live: no known problems In the past 12 months, utilities in danger of being shut off: no In past 12 months, lack of transportation kept you from medical appts, meetings, work, or getting things needed for daily living: no In the past 12 mos, have been you worried that your food would run out before you had money to buy more?: never true In the past 12 mos, the food you bought just didn't last and you didn't have money to buy more?: never true Smoking Status: Never smoker How often does anyone, including family, friends and others, physically hurt you: never How often does anyone, including family, friends and others, insult or talk down to you: never How often does anyone, including family, friends and others, threaten you with harm: never How often does anyone, including family, friends and others, scream or curse at you: never Meds Home Medications and Allergies Home Medications ?Medication ?Instructions ?Recorded ?Confirmed ?Type prenat.vits,demetria,zcm-wmih-lusnm 1 tab PO DAILY 08/08/22 11/15/24 History omeprazole 40 mg capsule,delayed 40 mg PO DAILY 05/03/24 11/15/24 History release famotidine 20 mg tablet 20 mg PO QDAY 06/28/24 11/15/24 History aspirin 81 mg tablet,delayed 81 mg PO QDAY 07/26/24 11/15/24 History release Allergies Allergy/AdvReac Type Severity Reaction Status Date / Time No Known Drug Allergies Allergy Verified 11/11/24 09:44 OB - H&P: Exam Physical Exam: Vital signs: Temp Pulse BP Pulse Ox 98.1 F 102 H 128/81 98 11/15/24 15:00 11/15/24 17:24 11/15/24 17:24 11/15/24 10:02 Narrative: EXAM: General: No acute distress Abdomen: Soft, nontender, gravid, breech lie, confirmed on ultrasound as described below OB - Results Labs Labs: Short CBC 11/15/24 Range/Units 09:36 WBC 10.54 (4.50-11.00) K/uL Hgb 11.3 L (12.0-16.0) gm/dL Hct 35.0 (33.0-51.0) % Plt Count 207 (140-440) K/uL BMP 11/15/24 10:11 BUN 8 Creatinine 0.6 Liver Function 11/15/24 Range/Units 10:11 AST 27 (12-35) U/L ALT 21 (4-35) U/L Imaging OB US: Attestation: I have reviewed the pertinent imaging results. My impression: Procedure Note: Limited OB Ultrasound (CPT 88314) Performed for indication of confirmation of presentation. Transabdominal probe utilized. Fetus in breech position. Amniotic fluid adequate. Impression: Breech presentation OB - CN: A/P Assessment and Plan (1) Gestational hypertension: Status: Acute (2) Breech presentation, antepartum: Problem details: at 35 weeks Status: Acute Assessment and Plan: PROCEDURE NOTE: EXTERNAL CEPHALIC VERSION We discussed risks of procedure, including placental abruption, labor, rupture of membranes, abnormal heart rate necessitating emergent delivery, and risk of failure as well as risk of discomfort. We discussed option of delivery. Consent form reviewed with and signed by patient. Ultrasound was performed with findings as noted above. neck was flexed. Patient was given a dose of IM terbutaline 10 minutes prior to the procedure. Maternal abdomen was coated with ultrasound gel. With the assistance of Alexis Becker CNM, of forward roll of the fetus was instituted and was successful after 1 attempt. Cephalic lie was confirmed with bedside ultrasound. Subsequent monitoring was reassuring. Patient was left to the management of midwives for her induction of labor. Plan Successful ECV as noted above.
[2024-11-15] MEDS: OXYTOCIN 30 unit/500 ML in NS 30 UNIT/500 ML BAG IVPB (18:50)
[2024-11-15] MEDS: LACTATED RINGERS 1000 ML 1,000 ML 123 ML IV (18:53)
[2024-11-15] MEDS: LIDOCAINE 1 % PF 30 ML INJECTION (20:12)
[2024-11-15] MEDS: IBUPROFEN 600 MG TABLET PO (20:24)
--- NOTE | 2024-11-15 20:38 | W.PM.VAGDE_ITS ---
OB Procedure Vag Delivery Mother Details Mother Details: The patient is a 29 year-old, 4, now Para 4, admitted on 11/15/24 at 37 0/7weeks gestation. Admission Date: 11/15/24 Additional Details Amniotic Membrane Status: AROM Amniotic Membrane Rupture Date: 11/15/24 Amniotic Membrane Rupture Time: 16:58 Amniotic Membrane Fluid Description: Clear Analgesia/Anesthesia Type: Local (with repair 1% lidocaine) Waterbirth: No Pitcoin: Yes Intrapartal Events: Labor Induction Induction Method: per misoprostol protocol (x 2 doses), per pitocin protocol (on 2 mu/min) and AROM Labor Onset: 17:00 Complete: 19:58 (assumed with spontaneous pushing) Pushin:03 Heart: heart tones during second stage were category 2 with variables, baseline had increased from the 150s, moderate variability. Rapid progress evident. Delivery Details Delivery Date: 11/15/24 Delivery Time: 20:03 Route of delivery: Gender: Female Infant Viability: Alive; Heart Rate Present Position at Delivery: OA Delivery Details: Patient was admitted for ECV, which was successful so IOL was initiated for GHTN with cytotec vaginally x 2 doses, then AROM and 2 mu of pitocin produced progression of labor. AROM noted at 1658 with clear fluid. Patient was assumed complete with spontaneous pushing at 1658 and pushing at 1658. of a viable female at 2002 in [facility]. Vertex delivered OA. One nuchal cord delivered through without complication. No shoulder dystocia. Body delivered easily and without incident. passed to mothers abdomen with a vigorous cry. Cord was clamped and cut at > 5 minutes. APGARS were 8 at one minute and 9 at five minutes respectively. Intact placenta with a 3 vessel cord delivered spontaneously at 2030 when vaginal gush indicated seperation, Betsey reported a cramp and pushed her placenta out.. Fundus firm. 2nd degree perineal laceration identified and repaired in typical fashion. Left labial laceeration was hemostatic and not repaired. QBL 336 cc. Mother and baby stable; mother plans to breastfeed. Infant weight pending.?Blood pressures have been labile but without severe features and normal lab findings. , Normotensive blood pressures returned within one hour of . ? 1 Minute Interval Total Score: 8 5 Minute Interval Total Score: 9 Additional Details Shoulder Dystocia: No Placenta Delivery Time: 20:31 Placental Delivery Description: Spontaneous Delivery repair: Vicryl Procedure Done: Global Blood Loss: 336 Laceration: Perineal - 2nd Degree (repaired, also a Left labial laceration that was hemostatic and not repaired.) Episiotomy Description: None Blood Loss Measurement Type: QBL Bakri Used: No Sponge/Need Count Correct: Yes Cord Vessel Description: 3 Vessels, Tight and Delivered through Event Summary Status: Mother and were stable after delivery. Disposition: floor
[2024-11-16 00:34] VITALS: BP 107/74; PULSE 92; RESP 18; TEMP 36.7; O2SAT 95
[2024-11-16 03:59] VITALS: BP 122/77; PULSE 82; RESP 18; TEMP 36.6; O2SAT 97
[2024-11-16] MEDS: IBUPROFEN 600 MG TABLET PO ×2 (04:06→17:17)
[2024-11-16 06:40] LABS: Hemoglobin* 9.5 gm/dL (12.0-16.0)
--- NOTE | 2024-11-16 07:46 | PM.OBPNVD1 ---
OB - PN:Subj Subjective Date Seen: 11/16/24 Narrative: Betsey is a 29 y.o. G 4 P 4 who was admitted to [facility] for ECV and IOL for GHTN. ?She had a NVD that was uncomplicated. The patient feels well. ?The pain is well controlled with current medications. ?She has no new complaints. ?She is breast feeding and reports things are going well. the patient has done well.? Vitals have been stable.? She has remained afebrile.? Has a good appetite, is tolerating a general diet. ?She is voiding without difficulty.? She is passing gas and has not had a bowel movement.? She is ambulating and denies any dizziness.? Has small amount of rubra lochia. Problems: GHTN stable post-delivery OB - PN: Obj Exam Physical Exam: Vital signs: Temp Pulse Resp BP Pulse Ox O2 Del Method 97.8 F 82 18 122/77 97 Room Air 11/16/24 03:59 11/16/24 03:59 11/16/24 03:59 11/16/24 03:59 11/16/24 03:59 11/16/24 00:34 Narrative: GENERAL APPEARANCE:? normal affect, alert, no distress MOOD:? appropriate CHEST:? clear to auscultation HEART:? regular rate and rhythm ABDOMEN:? soft, non-tender the uterine fundus is At Umbilicus, Midline and is appropriate for the stage of recovery. PERINEUM:? mild edema of the perineum, there is a Perineal Laceration,?2nd degree that is healing well. EXTREMITIES:? normal and no edema OB - PN: Obj Data Labs Labs: Laboratory Results - last 24 hr 11/15/24 11/15/24 11/15/24 09:36 10:11 12:35 WBC 10.54 RBC 4.52 Hgb 11.3 L Hct 35.0 MCV 77 L MCH 25 L MCHC 32 RDW Coeff of Teresa 14.9 Plt Count 207 Neut % (Auto) 71.0 Lymph % (Auto) 15.3 L Waldo % (Auto) 7.8 Eos % (Auto) 1.0 Baso % (Auto) 0.4 Neut # (Auto) 7.49 H Lymph # (Auto) 1.60 Waldo # (Auto) 0.80 Eos # (Auto) 0.11 Baso # (Auto) 0.04 Abs Immat Gran (auto) 0.47 H Imm/Tot Granulo (auto) 4.5 BUN 8 Creatinine 0.6 Estimated GFR 125 AST 27 ALT 21 Urine Creatinine 270.0 Protein/Creatinin Ratio 0.03 Urine Total Protein 7 Blood Type O Positive Antibody Screen NEGATIVE 11/16/24 06:25 WBC RBC Hgb 9.5 L Hct MCV MCH MCHC RDW Coeff of Teresa Plt Count Neut % (Auto) Lymph % (Auto) Waldo % (Auto) Eos % (Auto) Baso % (Auto) Neut # (Auto) Lymph # (Auto) Waldo # (Auto) Eos # (Auto) Baso # (Auto) Abs Immat Gran (auto) Imm/Tot Granulo (auto) BUN Creatinine Estimated GFR AST ALT Urine Creatinine Protein/Creatinin Ratio Urine Total Protein Blood Type Antibody Screen OB - PN: A/P Delivery Assessment and Plan (1) care and examination immediately after delivery: Status: Acute (2) Gestational hypertension: Status: Acute (3) Lactating mother: Status: Acute (4) Anemia due to acute blood loss: Status: Acute Plan day: 1 Plan: routine care Comments: , may see if needed? Hgb 9.5. Iron supplement ordered orally every other day? GHTN diagnosed by elevated BP greater than 4 hours apart?in Labs WNL Anticipate discharge tomorrow
[2024-11-16 08:04] VITALS: BP 127/85; PULSE 87; RESP 16; TEMP 36.6; O2SAT 98
[2024-11-16] MEDS: FERROUS SULFATE 325 MG TABLET PO (08:46)
[2024-11-16] MEDS: ONDANSETRON ODT 4 MG TAB PO (10:36)
[2024-11-16 12:34] VITALS: BP 128/87; PULSE 95; RESP 16; TEMP 36.8; O2SAT 98
[2024-11-16 13:36] LABS: Rapid Plasma Reagin (RPR) Non Reactive (Non Reactive)
[2024-11-16 18:00] VITALS: BP 119/79; PULSE 97; RESP 18; O2SAT 97
[2024-11-16 22:37] VITALS: PULSE 89; RESP 18; O2SAT 98
[2024-11-17 01:01] VITALS: BP 118/70; PULSE 91; RESP 18; O2SAT 98
[2024-11-17 03:55] VITALS: BP 106/67; PULSE 76; RESP 16; O2SAT 97
[2024-11-17] MEDS: IBUPROFEN 600 MG TABLET PO ×2 (04:43→10:30)
[2024-11-17 08:00] VITALS: BP 120/82; PULSE 91; RESP 16; TEMP 36.6; O2SAT 99
--- NOTE | 2024-11-17 08:23 | P.DS_ITS ---
DS: Providers Provider Date Seen: 11/17/24 Date of admission: 11/15/24 08:47 Primary care physician: Not a Local Provider Admitting Clinician: Halle Becker CNM Attending Physician on discharge: Halle Becker CNM Date of Discharge: 11/17/24 DS: Diagnosis Discharge Diagnosis (1) Anemia due to acute blood loss: Status: Acute (2) Lactating mother: Status: Acute (3) care and examination immediately after delivery: Status: Acute (4) Gestational hypertension: Status: Acute Exam Narrative: Exam Narrative: GENERAL APPEARANCE:? normal affect, alert, no distress? MOOD:? appropriate? CHEST:? clear to auscultation and percussion? HEART:? regular rate and rhythm? ABDOMEN:? soft, non-tender the uterine fundus is U/2 and is appropriate for the stage of recovery.? PERINEUM:? mild edema of the perineum, there is a 2nd degree laceration that is healing well.? EXTREMITIES:? normal and no edema? Const: Vital Signs, click to edit/add: Vital Signs - 24 hr 11/16/24 12:34 11/16/24 18:00 11/16/24 22:37 Temperature 98.2 F Pulse Rate [Pulse Oximeter] 95 97 89 Respiratory Rate 16 18 18 Blood Pressure [Le ft Arm] 128/87 119/79 Pulse Oximetry 98 97 98 Oxygen Delivery Me thod Room Air Room Air Room Air 11/17/24 01:01 11/17/24 03:55 11/17/24 08:00 Temperature 97.8 F Pulse Rate [Pulse Oximeter] 91 76 91 Respiratory Rate 18 16 16 Blood Pressure [Le ft Arm] 118/70 106/67 120/82 Pulse Oximetry 98 97 99 Oxygen Delivery Me thod Room Air Room Air Documenting provider has reviewed patient's vital signs: yes OB - DS: Summary Hospital Course Hospital Course: The patient is a 29 year old G 4 P 4 at 37.0 weeks gestation that was admitted to the Center on 11/15/24 for IOL for gestational hypertension. She had an uncomplicated vaginal delivery. She delivered a viable female infant. She is breast feeding and denies complications or concerns with how it is going at this time. the patient has done well. Her pain is well controlled with current medications.? She has no new complaints.? Urinary output is adequate and she is voiding without difficulty.? Has a good appetite, is tolerating a general diet, is passing flatus, and has not had a bowel movement.? Has scant amount of rubra lochia.? She is ambulating well. She is uncertain if they are planning par tner vasectomy or possibly IUD vs pill for contraception. Her BPs have been WNL since delivery. She will continue to monitor blood pressures at home. Her Hgb is 9.5 yesterday. states that the PO iron made her nauseous which resolved with Zofran. Will plan to send a few Zofran home for nausea PRN but also discussed other forms that may be more tolerable as well as dietary intake. Peripartum Data Infant delivery method: Vaginal Laceration description: Perineal - 2nd Degree Episiotomy description: None complications: none Infant Gender: Female Infant Discharge Plan: Home Status at Discharge Functional status at discharge: independent ambulation Overall status at discharge: patient is progressing back to baseline Time Spent with Patient Time attestation: Total time spent providing and/or coordinating discharge services: Discharge Plan Discharge Disposition: Home, Self-Care Date of Admission: 11/15/24 08:47 Attending Provider on Discharge: Kalpana Asher Primary Care Provider: Provider,Not a Local Condition: Stable Anticipated Discharge Date/Time: 11/17/24 10:00 Discharge Medications: New docusate sodium 100 mg Capsule 100 mg PO DAILY Qty: 120 0RF Rx Instructions: Take 1-2 tablets as needed for constipation. ibuprofen 600 mg Tablet 600 mg PO Q6H PRNQty: 60 0RF ondansetron 4 mg Tablet,Disintegrating 4 mg PO Q6H PRN (Reason: Nausea) Qty: 7 0RF Continued omeprazole 40 mg capsule,delayed release(DR/EC) 40 mg PO DAILY famotidine 20 mg tablet 20 mg PO QDAY prenat.vits,demetria,iwm-aukw-psorr Tablet 1 tab PO DAILY Discontinued aspirin 81 mg tablet,delayed release (DR/EC) 81 mg PO QDAY Discharge Orders: Discharge Order (Routine); Ordered 11/17/24 Ordered By: Kalpana Asher Patient Education: OB High Blood Pressure DC, OB Over the Counter Medication Information, OB Vaginal/Breast Feeding Additional Instructions: Discharge instructions were reviewed with the patient including signs and symptoms of infection and home going medications.? Lifting Restrictions: 20 pounds for 6? weeks? ?? Do not drive while taking narcotic pain meds.? Off Work or School for 6 weeks.? ?? Symptoms to report to doctor:? -Bleeding that saturates more than one pad per hour? -Passing clots larger than the size of a golf ball? -Pain not relieved by prescribed medication? -Fever above 100.4 degrees Fahrenheit? -A foul vaginal odor? -Difficulty in emotions, mood and functions? -Thoughts of hurting yourself and/or ? -Painful, reddened area in your breast? -Any drainage, redness or tenderness in your IV/epidural site? -Severe headache that doesn't improve after taking medications? -Changes in vision, including temporary loss of vision, blurred vision, and/or light sensitivity? -Upper abdominal pain (usually under ribs on the right side)? -Decrease in urination or painful, frequent urinating? -Chest pain? -Shortness of breath? -Tenderness or pain with redness and/swelling in the calf(s) of your leg? ?? Blood pressure check in 2-3 days in the clinic. Follow Up in clinic in 2 and 6 weeks.? ?? consultation services are available to all mothers and babies for the first year after delivery.? To make an appointment, please call [phone].? Activity Level: Activity as Tolerated Discharge Diet: Regular Follow Up Appointments: [facility] [Provider Group] Provider,Not a Local [Primary Care Provider] - Forms: [facility] [employer] Info Instructions
== END 2024-11-17 10:57 | disposition home or self-care (01) | DRG 807 ==
PROVIDERS: Admitting Provider Midwife; Visit Provider Midwife
DX: O13.4 Gestational [pregnancy-induced] hypertension without significant proteinuria, complicating childbirth (principal); Z37.0 Single live birth; O32.1XX0 Maternal care for breech presentation, not applicable or unspecified; O36.63X0 Maternal care for excessive fetal growth, third trimester, not applicable or unspecified; O70.1 Second degree perineal laceration during delivery; O99.02 Anemia complicating childbirth; D64.9 Anemia, unspecified; Z28.39 Other underimmunization status; Z3A.37 37 weeks gestation of pregnancy
CPT/HCPCS: 36415; 59200; 82565; 82570; 84156; 84450; 84460; 84520; 85018; 85025; 86592; 86850; 86900; 86901; 88307; A9270; J2003; J3105; J7120

== ENCOUNTER 2024-12-27 10:31 | Outpatient (CLI) | payer OTHER, SELFPAY ==
[2024-12-29 07:33] LABS: HPV Source Cervical; HPV, High Risk by TMA Not Detected
== END 2024-12-27 10:32 | disposition home or self-care (01) ==
PROVIDERS: Visit Provider Advanced Practice Midwife
DX: Z12.4 Encounter for screening for malignant neoplasm of cervix (principal); Z11.51 Encounter for screening for human papillomavirus (HPV)
CPT/HCPCS: 87624; 87625; 88141; 88142